=== PATIENT | female | born 1985 ===

== ENCOUNTER 2020-05-30 16:04 | Outpatient (REF) | payer OTHER, SELFPAY ==
[2020-06-04 03:57] LABS: SARS-CoV-2 RNA Undetected (Undetected)
== END 2020-05-30 16:24 ==
LOC: NCHCN 16:04
PROVIDERS: PCP Family Medicine; Visit Provider Family Medicine
DX: Z11.59 Encounter for screening for other viral diseases (principal)
CPT/HCPCS: U0003